=== PATIENT | male | born 1945 | race Caucasian/White ===

== ENCOUNTER → 2016-12-19 | Outpatient (CLI) | payer MEDICARE, OTHER ==
[~2016-12-19] MED LIST: FENTANYL PF 100 MCG/2ML ONE; GADOBUTROL 10 MMOL/10 ML PFS ONE; MIDAZOLAM 1 MG/ML, 5ML ONE
== END | disposition home or self-care (01) ==
LOC: RAD 09:32
PROVIDERS: ATTEND Urology
DX: D41.02 Neoplasm of uncertain behavior of left kidney (principal); N28.1 Cyst of kidney, acquired; I71.4 Abdominal aortic aneurysm, without rupture; K76.89 Other specified diseases of liver; Z85.528 Personal history of other malignant neoplasm of kidney; Z90.5 Acquired absence of kidney
CPT/HCPCS: 74183; 99156; 99157; A9585; J2250; J3010

== ENCOUNTER 2017-10-28 18:17 | Inpatient (IN) | payer MEDICARE ==
[~2017-10-28] VITALS: Ht 180.3 cm; Wt 101.6 kg
[~2017-10-28 18:17] MED LIST changes: +ETOMIDATE 20 MG/10 ML ONE; -FENTANYL PF 100 MCG/2ML ONE; -GADOBUTROL 10 MMOL/10 ML PFS ONE; +PROPOFOL 10 MG/ML, 100ML IV ONE; +SUCCINYLCHOLINE 20 MG/ML, 10ML ONE
[2017-10-28] MEDS ORDERED: ALBUTEROL/IPRATROPIUM 2.5MG/0.5MG, 3 ML ONE (18:26)
[2017-10-28] MEDS ORDERED: ALBUTEROL SULFATE 2.5 MG/3 ML NPPB ONE (18:30)
[2017-10-28] MEDS ORDERED: ALBUTEROL/IPRATROPIUM 2.5MG/0.5MG, 3 ML NPPB ONE (18:30)
[2017-10-28] MEDS ORDERED: PROPOFOL 100 ML IV PRN (18:41)
[2017-10-28] MEDS ORDERED: methylPREDNISolone SOD SUCC 125 MG/2 ML IVPush ONE (19:00)
[2017-10-28] MEDS ORDERED: SUCCINYLCHOLINE 20 MG/ML, 10ML IVPush ONE (19:00)
[2017-10-28] MEDS ORDERED: SODIUM CHLORIDE FLUSH 10ML SYR IVF PRN (19:00)
[2017-10-28] MEDS ORDERED: ETOMIDATE 20 MG/10 ML IVPush ONE (19:00)
[2017-10-28] MEDS ORDERED: AZITHROMYCIN 500 MG in SODIUM CHLORIDE 0.9% 250 ML IV ONE (19:00)
[2017-10-28] MEDS ORDERED: SODIUM CHLORIDE 0.9% 1,000ML IVBOLUS ONE ×3 (19:00→21:00)
[2017-10-28] MEDS ORDERED: CEFTRIAXONE PMX 1GM/50ML 50 ML IV ONE (19:00)
[2017-10-28 19:01] LABS: BASOPHILS # (AUTO) 0.06 x10^3/uL (0-0.1); BASOPHILS % (AUTO) 1 % (0-1); EOSINOPHILS % (AUTO) 0 % (1-7); LYMPHOCYTES # (AUTO) 0.72 x10^3/uL (1-3.4); LYMPHOCYTES % (AUTO) 6 % (22-44); MD NO; MEAN CORPUSCULAR HEMOGLOBIN 27.6 pg (27.5-34.5); MEAN CORPUSCULAR HGB CONC 31.8 g/dL (33.2-36.2); MEAN PLATELET VOLUME 9.5 fL (7.4-10.4); MONOCYTES % (AUTO) 4 % (2-9); NEUTROPHILS # (AUTO) 11.69 x10^3/uL (1.8-6.8); NEUTROPHILS % (AUTO) 90 % (42-75); PLATELET COUNT 155 x10^3/uL (130-400); RED BLOOD COUNT 6.41 x10^6/uL (4.38-5.82); RED CELL DISTRIBUTION WIDTH 16.9 % (9.4-14.8)
[2017-10-28 19:06] LABS: INTERNATIONAL NORMALIZED RATIO 2.36 (0.93-1.1); PROTHROMBIN TIME 24.1 Seconds (9.6-11.5)
[2017-10-28] MEDS ORDERED: NOREPINEPHRINE 4 MG in SODIUM CHLORIDE 0.9% 246 ML IV PRN (19:07)
[2017-10-28 19:09] LABS: ALBUMIN 2.7 g/dL (3.4-5.0); ANION GAP 13 mmol/L (5-15); CHLORIDE 102 mmol/L (98-107)
[2017-10-28 19:19] LABS: ALANINE AMINOTRANSFERASE 3093 U/L (12-78); ALKALINE PHOSPHATASE 103 U/L (45-117); BILIRUBIN,TOTAL 3.1 mg/dL (0.2-1.0); TOTAL PROTEIN 6.7 g/dL (6.4-8.2)
[2017-10-28] MEDS ORDERED: MIDAZOLAM 1 MG/ML, 2ML IVPush ONE (19:30)
[2017-10-28] MEDS ORDERED: PLEASE ENTER ALLERGIES MC SCH (19:30)
[2017-10-28] MEDS ORDERED: methylPREDNISolone SOD SUCC 125 MG/2 ML ONE (20:37)
[2017-10-28] MEDS ORDERED: ALPR-475 PO (20:51)
[2017-10-28] MEDS ORDERED: ZOLP10TA PO (20:51)
[2017-10-28] MEDS ORDERED: SODIUM CHLORIDE 0.9% 1,000 ML IV SCH (20:51)
[2017-10-28] MEDS ORDERED: MORP30TA PO (20:51)
[2017-10-28] MEDS ORDERED: ROSU40TA PO (20:51)
[2017-10-28] MEDS ORDERED: FLUT1BLS INH (20:58)
[2017-10-28] MEDS ORDERED: ACETAMINOPHEN 650 MG SUPP PR PRN (21:00)
[2017-10-28] MEDS ORDERED: ONDANSETRON 2MG/ML, 2ML IVPB PRN (21:00)
[2017-10-28] MEDS ORDERED: PHARMACY MAY ADJ FOR RENAL FX MC PRN (21:00)
[2017-10-28] MEDS ORDERED: SODIUM CHLORIDE 0.9%, 500ML IVBOLUS PRN ×2 (21:00)
[2017-10-28] MEDS ORDERED: LEVOFLOXACIN/PMX 750MG/150ML 150 ML IVPB SCH (21:00)
[2017-10-28] MEDS ORDERED: HYDROCORTISONE 100 MG INJ. IV SCH (21:00)
[2017-10-28] MEDS ORDERED: VANCOMYCIN PER PHARMACY MC PRN (21:30)
[2017-10-28] MEDS ORDERED: LIDOCAINE-MPF 1%, 2ML ENDO PRN (21:30)
[2017-10-28] MEDS: ALBUTEROL/IPRATROPIUM 2.5MG/0.5MG, 3 ML NPPB SCH (21:52)
[2017-10-28] MEDS ORDERED: PHARMACOKINETIC MONITORING MC PRN (22:00)
[2017-10-28] MEDS: PIPERACILLIN/TAZO/PMX 4.5GM 100 ML IV SCH (22:35)
[2017-10-28] MEDS: PANTOPRAZOLE 40 MG IV IV SCH (22:39)
[2017-10-28] MEDS: HEPARIN 5,000 UNITS/ML, 1ML SQ SCH (22:39)
[2017-10-28] MEDS: methylPREDNISolone SOD SUCC 125 MG/2 ML IVPush SCH (22:40)
[2017-10-28] MEDS ORDERED: VANCOMYCIN 1,800 MG in SODIUM CHLORIDE 0.9% 250 ML IV SCH (23:00)
[2017-10-28] MEDS: NOREPINEPHRINE 4 MG in SODIUM CHLORIDE 0.9% 246 ML IV PRN (23:58)
[2017-10-29] MEDS: NOREPINEPHRINE 4 MG in SODIUM CHLORIDE 0.9% 246 ML IV PRN ×3 (02:31→23:52)
[2017-10-29] MEDS: ALBUTEROL/IPRATROPIUM 2.5MG/0.5MG, 3 ML NPPB SCH ×6 (02:45→22:30)
[2017-10-29] MEDS ORDERED: SODIUM CHLORIDE 0.9%, 250ML IVBOLUS ONE (03:00)
[2017-10-29 04:00] VITALS: BP 102/60
[2017-10-29 04:48] LABS: MEAN CORPUSCULAR HEMOGLOBIN 27.3 pg (27.5-34.5); MEAN CORPUSCULAR HGB CONC 31.5 g/dL (33.2-36.2); MEAN CORPUSCULAR VOLUME 86.8 fL (81-97); MEAN PLATELET VOLUME 10.3 fL (7.4-10.4); PLATELET COUNT 182 x10^3/uL (130-400); RED BLOOD COUNT 6.53 x10^6/uL (4.38-5.82); RED CELL DISTRIBUTION WIDTH 17.4 % (9.4-14.8)
[2017-10-29 04:59] LABS: CHLORIDE 109 mmol/L (98-107)
[2017-10-29] MEDS: PIPERACILLIN/TAZO/PMX 4.5GM 100 ML IV SCH ×3 (05:10→20:00)
[2017-10-29] MEDS: PROPOFOL 100 ML IV PRN (05:12)
[2017-10-29] MEDS: methylPREDNISolone SOD SUCC 125 MG/2 ML IVPush SCH ×3 (05:12→20:43)
[2017-10-29 05:22] LABS: ALANINE AMINOTRANSFERASE 4756 U/L (12-78); ALBUMIN 2.2 g/dL (3.4-5.0); ALKALINE PHOSPHATASE 88 U/L (45-117); ANION GAP 11 mmol/L (5-15); BILIRUBIN,TOTAL 2.7 mg/dL (0.2-1.0); CALCIUM 7.1 mg/dL (8.5-10.1); CREATININE 1.85 mg/dL (0.7-1.3); TOTAL PROTEIN 5.5 g/dL (6.4-8.2)
[2017-10-29 05:39] LABS: MD YES
[2017-10-29 05:41] LABS: <PLATELET ESTIMATE> ADEQUATE; <PLT MORPHOLOGY> NORMAL PLT MORPH; BAND#(MANUAL) 2.03 x10^3/uL; BANDS%(MANUAL) 13 % (0-7); LYMPH#(MANUAL) 2.03 x10^3/uL (1-3.4); LYMPHS% (MANUAL) 13 % (22-44); MONOS#(MANUAL) 0.31 x10^3/uL (0.3-2.7); MONOS% (MANUAL) 2 % (2-9); SEG#(MANUAL) 11.23 x10^3/uL (1.8-6.8); SEGS% (MANUAL) 72 % (42-75)
[2017-10-29] MEDS ORDERED: MORP30TA3 PO (06:43)
[2017-10-29] MEDS ORDERED: EZET10TA18 PO (06:47)
[2017-10-29] MEDS ORDERED: ATEN25TA PO (06:48)
[2017-10-29] MEDS ORDERED: ASPI-515 PO (06:49)
[2017-10-29] MEDS ORDERED: ZOLP12.54 PO (07:09)
[2017-10-29] MEDS: HEPARIN 5,000 UNITS/ML, 1ML SQ SCH ×2 (08:55→20:44)
[2017-10-29 11:15] LABS: INTERNATIONAL NORMALIZED RATIO 2.03 (0.93-1.1); PROTHROMBIN TIME 20.8 Seconds (9.6-11.5)
[2017-10-29] MEDS: ASPIRIN 81 MG TABLET CHEW PO SCH (11:38)
[2017-10-29] MEDS: SODIUM CHLORIDE 0.9% 1,000 ML IV SCH (15:09)
[2017-10-29] MEDS: PANTOPRAZOLE 40 MG IV IV SCH (20:43)
[2017-10-29] MEDS ORDERED: SODIUM CHLORIDE 0.9% 1,000 ML IV SCH (20:51)
[2017-10-29] MEDS: FENTANYL PF 100 MCG/2ML IVPush PRN (22:32)
[2017-10-30] MEDS: SODIUM CHLORIDE 0.9% 1,000 ML IV SCH ×3 (01:37→22:56)
[2017-10-30] MEDS: ALBUTEROL/IPRATROPIUM 2.5MG/0.5MG, 3 ML NPPB SCH ×6 (02:02→22:26)
[2017-10-30] MEDS: PIPERACILLIN/TAZO/PMX 4.5GM 100 ML IV SCH ×4 (02:27→20:39)
[2017-10-30 05:00] VITALS: BP 99/62
[2017-10-30 05:25] LABS: INTERNATIONAL NORMALIZED RATIO 2.07 (0.93-1.1); MEAN CORPUSCULAR HEMOGLOBIN 27.7 pg (27.5-34.5); MEAN CORPUSCULAR HGB CONC 31.8 g/dL (33.2-36.2); MEAN CORPUSCULAR VOLUME 87.1 fL (81-97); MEAN PLATELET VOLUME 9.5 fL (7.4-10.4); PLATELET COUNT 132 x10^3/uL (130-400); PROTHROMBIN TIME 21.2 Seconds (9.6-11.5); RED BLOOD COUNT 5.89 x10^6/uL (4.38-5.82); RED CELL DISTRIBUTION WIDTH 17.2 % (9.4-14.8)
[2017-10-30 05:27] LABS: CHLORIDE 112 mmol/L (98-107)
[2017-10-30] MEDS: methylPREDNISolone SOD SUCC 125 MG/2 ML IVPush SCH (05:43)
[2017-10-30 05:48] LABS: MD YES
[2017-10-30 05:49] LABS: BAND#(MANUAL) 0.56 x10^3/uL; BANDS%(MANUAL) 4 % (0-7); LYMPH#(MANUAL) 1.41 x10^3/uL (1-3.4); LYMPHS% (MANUAL) 10 % (22-44); MONOS#(MANUAL) 0.28 x10^3/uL (0.3-2.7); MONOS% (MANUAL) 2 % (2-9); SEG#(MANUAL) 11.84 x10^3/uL (1.8-6.8); SEGS% (MANUAL) 84 % (42-75)
[2017-10-30 05:50] LABS: <PLATELET ESTIMATE> ADEQUATE; <PLT MORPHOLOGY> NORMAL PLT MORPH
[2017-10-30 05:54] LABS: ALANINE AMINOTRANSFERASE 3892 U/L (12-78); ALKALINE PHOSPHATASE 83 U/L (45-117); ANION GAP 9 mmol/L (5-15); BILIRUBIN,TOTAL 2.3 mg/dL (0.2-1.0); CALCIUM 7.3 mg/dL (8.5-10.1); CREATININE 1.01 mg/dL (0.7-1.3)
[2017-10-30] MEDS: ASPIRIN 81 MG TABLET CHEW PO SCH (09:08)
[2017-10-30] MEDS: HEPARIN 5,000 UNITS/ML, 1ML SQ SCH ×3 (09:08→20:39)
[2017-10-30] MEDS: PROPOFOL 100 ML IV PRN ×2 (10:13→15:57)
[2017-10-30] MEDS: FENTANYL PF 100 MCG/2ML IVPush PRN ×2 (11:10→17:39)
[2017-10-30] MEDS: PANTOPRAZOLE 40 MG IV IV SCH (20:39)
[2017-10-31] MEDS: PROPOFOL 100 ML IV PRN (01:59)
[2017-10-31] MEDS: PIPERACILLIN/TAZO/PMX 4.5GM 100 ML IV SCH ×4 (02:30→20:35)
[2017-10-31] MEDS: ALBUTEROL/IPRATROPIUM 2.5MG/0.5MG, 3 ML NPPB SCH ×6 (02:36→22:30)
[2017-10-31] MEDS: FENTANYL PF 100 MCG/2ML IVPush PRN ×2 (02:38→08:00)
[2017-10-31 05:00] VITALS: BP 113/63
[2017-10-31 05:09] LABS: BASOPHILS # (AUTO) 0.02 x10^3/uL (0-0.1); BASOPHILS % (AUTO) 0 % (0-1); EOSINOPHILS # (AUTO) 0.01 x10^3/uL (0-0.4); EOSINOPHILS % (AUTO) 0 % (1-7); LYMPHOCYTES # (AUTO) 0.78 x10^3/uL (1-3.4); LYMPHOCYTES % (AUTO) 6 % (22-44); MD NO; MEAN CORPUSCULAR HEMOGLOBIN 27.6 pg (27.5-34.5); MEAN CORPUSCULAR HGB CONC 31.6 g/dL (33.2-36.2); MEAN CORPUSCULAR VOLUME 87.1 fL (81-97); MEAN PLATELET VOLUME 9.6 fL (7.4-10.4); MONOCYTES # (AUTO) 0.41 x10^3/uL (0.2-0.8); MONOCYTES % (AUTO) 3 % (2-9); NEUTROPHILS # (AUTO) 12.54 x10^3/uL (1.8-6.8); NEUTROPHILS % (AUTO) 91 % (42-75); PLATELET COUNT 133 x10^3/uL (130-400); RED BLOOD COUNT 5.93 x10^6/uL (4.38-5.82); RED CELL DISTRIBUTION WIDTH 17.1 % (9.4-14.8)
[2017-10-31 05:18] LABS: INTERNATIONAL NORMALIZED RATIO 1.67 (0.93-1.1); PROTHROMBIN TIME 17.2 Seconds (9.6-11.5)
[2017-10-31 05:32] LABS: CHLORIDE 112 mmol/L (98-107)
[2017-10-31 05:54] LABS: ALANINE AMINOTRANSFERASE 2732 U/L (12-78); ALBUMIN 2.1 g/dL (3.4-5.0); ALKALINE PHOSPHATASE 83 U/L (45-117); ANION GAP 9 mmol/L (5-15); BILIRUBIN,TOTAL 1.9 mg/dL (0.2-1.0); CALCIUM 7.7 mg/dL (8.5-10.1); TOTAL PROTEIN 5.1 g/dL (6.4-8.2); TRIGLYCERIDES 117 mg/dL (50-200); VANCOMYCIN,RANDOM 3.1 mcg/mL
[2017-10-31] MEDS ORDERED: FUROSEMIDE 20 MG/2 ML IV ONE (09:30)
[2017-10-31] MEDS: SODIUM CHLORIDE 0.9% 1,000 ML IV SCH (09:38)
[2017-10-31] MEDS ORDERED: FINASTERIDE 5 MG TABLET PO ONE (10:30)
[2017-10-31] MEDS ORDERED: TRAZODONE 50MG TABLET PO PRN (10:30)
[2017-10-31] MEDS: ASPIRIN 81 MG TABLET CHEW PO SCH (12:44)
[2017-10-31] MEDS: GABAPENTIN 400 MG CAPSULE PO SCH ×3 (12:44→20:35)
[2017-10-31] MEDS: HEPARIN 5,000 UNITS/ML, 1ML SQ SCH ×3 (12:44→20:35)
[2017-10-31] MEDS ORDERED: ALBUTEROL/IPRATROPIUM 2.5MG/0.5MG, 3 ML NPPB PRN (13:30)
[2017-10-31] MEDS: PANTOPRAZOLE 40 MG IV IV SCH (20:35)
[2017-11-01] MEDS: PIPERACILLIN/TAZO/PMX 4.5GM 100 ML IV SCH ×2 (02:24→07:48)
[2017-11-01] MEDS: ALBUTEROL/IPRATROPIUM 2.5MG/0.5MG, 3 ML NPPB SCH ×5 (02:30→20:00)
[2017-11-01 05:00] VITALS: BP 109/63
[2017-11-01 05:01] LABS: MEAN CORPUSCULAR HEMOGLOBIN 27.9 pg (27.5-34.5); MEAN CORPUSCULAR HGB CONC 32.2 g/dL (33.2-36.2); MEAN CORPUSCULAR VOLUME 86.5 fL (81-97); PLATELET COUNT 121 x10^3/uL (130-400); RED BLOOD COUNT 6.01 x10^6/uL (4.38-5.82); RED CELL DISTRIBUTION WIDTH 17.5 % (9.4-14.8)
[2017-11-01 05:04] LABS: ALBUMIN 2.3 g/dL (3.4-5.0); ANION GAP 5 mmol/L (5-15); CALCIUM 7.8 mg/dL (8.5-10.1); CHLORIDE 109 mmol/L (98-107)
[2017-11-01 05:14] LABS: ALKALINE PHOSPHATASE 77 U/L (45-117); BILIRUBIN,TOTAL 2.9 mg/dL (0.2-1.0); CREATININE 0.76 mg/dL (0.7-1.3); TOTAL PROTEIN 5.5 g/dL (6.4-8.2)
[2017-11-01 05:17] LABS: ALANINE AMINOTRANSFERASE 2095 U/L (12-78)
[2017-11-01 05:44] LABS: BASOPHILS % (AUTO) 1 % (0-1); EOSINOPHILS # (AUTO) 0.01 x10^3/uL (0-0.4); EOSINOPHILS % (AUTO) 0 % (1-7); LYMPHOCYTES # (AUTO) 1.16 x10^3/uL (1-3.4); LYMPHOCYTES % (AUTO) 8 % (22-44); MD SCAN; MONOCYTES # (AUTO) 0.25 x10^3/uL (0.2-0.8); MONOCYTES % (AUTO) 2 % (2-9); NEUTROPHILS # (AUTO) 14.05 x10^3/uL (1.8-6.8); NEUTROPHILS % (AUTO) 90 % (42-75)
[2017-11-01] MEDS ORDERED: ALBUTEROL/IPRATROPIUM 2.5MG/0.5MG, 3 ML IPPB SCH (07:00)
[2017-11-01] MEDS ORDERED: MAGNESIUM SULFATE PMX 2GM/50ML 50 ML IV ONE (07:00)
[2017-11-01] MEDS: HEPARIN 5,000 UNITS/ML, 1ML SQ SCH ×3 (08:52→20:08)
[2017-11-01] MEDS: GABAPENTIN 400 MG CAPSULE PO SCH ×3 (08:52→20:08)
[2017-11-01] MEDS: ASPIRIN 81 MG TABLET CHEW PO SCH (08:52)
[2017-11-01] MEDS: TAMSULOSIN 0.4 MG CAP.ER.24H PO SCH (08:52)
[2017-11-01 11:18] VITALS: BP 105/72
[2017-11-01] MEDS: FINASTERIDE 5 MG TABLET PO SCH (13:51)
[2017-11-01] MEDS: AMPICILLIN/SULBACTAM 3 GM in SODIUM CHLORIDE 0.9% 100 ML IV SCH ×2 (13:52→20:08)
[2017-11-01 14:06] VITALS: BP 116/73
[2017-11-01 18:20] VITALS: BP 114/74
[2017-11-01] MEDS: FAMOTIDINE 20 MG TABLET PO SCH (20:08)
[2017-11-02] MEDS: OXYcodone IR 5MG TABLET PO PRN ×2 (00:29→12:16)
[2017-11-02] MEDS: AMPICILLIN/SULBACTAM 3 GM in SODIUM CHLORIDE 0.9% 100 ML IV SCH ×4 (01:42→20:58)
[2017-11-02 02:22] VITALS: BP 100/52
[2017-11-02 05:31] LABS: MEAN CORPUSCULAR HEMOGLOBIN 27.8 pg (27.5-34.5); MEAN CORPUSCULAR HGB CONC 31.9 g/dL (33.2-36.2); MEAN CORPUSCULAR VOLUME 86.9 fL (81-97); MEAN PLATELET VOLUME 8.8 fL (7.4-10.4); PLATELET COUNT 94 x10^3/uL (130-400); RED BLOOD COUNT 5.64 x10^6/uL (4.38-5.82); RED CELL DISTRIBUTION WIDTH 17.5 % (9.4-14.8)
[2017-11-02 05:33] LABS: ALBUMIN 2.2 g/dL (3.4-5.0); ANION GAP 5 mmol/L (5-15); CALCIUM 7.6 mg/dL (8.5-10.1); CHLORIDE 110 mmol/L (98-107); CREATININE 0.63 mg/dL (0.7-1.3)
[2017-11-02 05:43] LABS: ALANINE AMINOTRANSFERASE 1333 U/L (12-78); ALKALINE PHOSPHATASE 69 U/L (45-117); BILIRUBIN,TOTAL 2.5 mg/dL (0.2-1.0)
[2017-11-02 06:00] LABS: BASOPHILS # (AUTO) 0.14 x10^3/uL (0-0.1); BASOPHILS % (AUTO) 1 % (0-1); EOSINOPHILS # (AUTO) 0.11 x10^3/uL (0-0.4); EOSINOPHILS % (AUTO) 1 % (1-7); LYMPHOCYTES # (AUTO) 1.13 x10^3/uL (1-3.4); LYMPHOCYTES % (AUTO) 9 % (22-44); MD SCAN; MONOCYTES # (AUTO) 0.38 x10^3/uL (0.2-0.8); MONOCYTES % (AUTO) 3 % (2-9); NEUTROPHILS # (AUTO) 10.68 x10^3/uL (1.8-6.8); NEUTROPHILS % (AUTO) 86 % (42-75)
[2017-11-02] MEDS: ALBUTEROL/IPRATROPIUM 2.5MG/0.5MG, 3 ML NPPB SCH ×4 (06:55→18:21)
[2017-11-02] MEDS ORDERED: MAGNESIUM SULFATE PMX 4GM/100M 100 ML IV ONE ×2 (07:00→10:00)
[2017-11-02] MEDS ORDERED: SODIUM PHOSPHATE 10 MMOL in SODIUM CHLORIDE 0.9% 500 ML IV ONE (07:00)
[2017-11-02 07:20] VITALS: BP 105/74
[2017-11-02 08:16] LABS: HIT RESULT NEGATIVE (NEGATIVE)
[2017-11-02] MEDS: ASPIRIN 81 MG TABLET CHEW PO SCH (08:31)
[2017-11-02] MEDS: TAMSULOSIN 0.4 MG CAP.ER.24H PO SCH (08:31)
[2017-11-02] MEDS: FAMOTIDINE 20 MG TABLET PO SCH ×2 (08:31→20:58)
[2017-11-02] MEDS: GABAPENTIN 400 MG CAPSULE PO SCH ×3 (08:31→20:58)
[2017-11-02] MEDS: FINASTERIDE 5 MG TABLET PO SCH (08:55)
[2017-11-02] MEDS: HEPARIN 5,000 UNITS/ML, 1ML SQ SCH ×3 (08:55→20:58)
[2017-11-02 13:30] VITALS: BP 117/73
[2017-11-02 18:54] VITALS: BP 99/62
[2017-11-03] MEDS: AMPICILLIN/SULBACTAM 3 GM in SODIUM CHLORIDE 0.9% 100 ML IV SCH ×4 (02:43→20:20)
[2017-11-03 05:02] VITALS: BP 123/72
[2017-11-03 07:03] VITALS: BP 146/82
[2017-11-03] MEDS: ALBUTEROL/IPRATROPIUM 2.5MG/0.5MG, 3 ML NPPB SCH ×4 (07:18→19:45)
[2017-11-03] MEDS: FINASTERIDE 5 MG TABLET PO SCH (07:52)
[2017-11-03] MEDS: ASPIRIN 81 MG TABLET CHEW PO SCH (07:52)
[2017-11-03] MEDS: GABAPENTIN 400 MG CAPSULE PO SCH ×3 (07:52→20:19)
[2017-11-03] MEDS: FAMOTIDINE 20 MG TABLET PO SCH ×2 (07:53→20:19)
[2017-11-03] MEDS: TAMSULOSIN 0.4 MG CAP.ER.24H PO SCH (07:53)
[2017-11-03 08:11] LABS: MEAN CORPUSCULAR HEMOGLOBIN 27.5 pg (27.5-34.5); MEAN CORPUSCULAR HGB CONC 31.8 g/dL (33.2-36.2); MEAN CORPUSCULAR VOLUME 86.4 fL (81-97); RED CELL DISTRIBUTION WIDTH 18.1 % (9.4-14.8)
[2017-11-03 08:22] LABS: ALBUMIN 2.4 g/dL (3.4-5.0); ANION GAP 5 mmol/L (5-15); CALCIUM 7.9 mg/dL (8.5-10.1); CHLORIDE 105 mmol/L (98-107)
[2017-11-03 08:32] LABS: ALANINE AMINOTRANSFERASE 1068 U/L (12-78); ALKALINE PHOSPHATASE 70 U/L (45-117); BILIRUBIN,TOTAL 2.3 mg/dL (0.2-1.0); CREATININE 0.54 mg/dL (0.7-1.3); TOTAL PROTEIN 5.6 g/dL (6.4-8.2)
[2017-11-03 08:36] LABS: BASOPHILS # (AUTO) 0.08 x10^3/uL (0-0.1); BASOPHILS % (AUTO) 1 % (0-1); EOSINOPHILS # (AUTO) 0.23 x10^3/uL (0-0.4); EOSINOPHILS % (AUTO) 2 % (1-7); LYMPHOCYTES # (AUTO) 1.38 x10^3/uL (1-3.4); LYMPHOCYTES % (AUTO) 13 % (22-44); MD SCAN; MEAN PLATELET VOLUME 9.2 fL (7.4-10.4); MONOCYTES # (AUTO) 0.11 x10^3/uL (0.2-0.8); MONOCYTES % (AUTO) 1 % (2-9); NEUTROPHILS # (AUTO) 9.29 x10^3/uL (1.8-6.8); NEUTROPHILS % (AUTO) 84 % (42-75); PLATELET COUNT 84 x10^3/uL (130-400)
[2017-11-03] MEDS: HEPARIN 5,000 UNITS/ML, 1ML SQ SCH (09:56)
[2017-11-03] MEDS ORDERED: ENOXAPARIN 40 MG/0.4 ML SQ SCH (12:30)
[2017-11-03 13:58] VITALS: BP 112/77
[2017-11-03] MEDS: ENOXAPARIN 40 MG/0.4 ML SQ SCH (14:29)
[2017-11-03 20:18] VITALS: BP 109/65
[2017-11-03] MEDS: OXYcodone IR 5MG TABLET PO PRN (20:19)
[2017-11-04 01:49] VITALS: BP 151/85
[2017-11-04] MEDS: AMPICILLIN/SULBACTAM 3 GM in SODIUM CHLORIDE 0.9% 100 ML IV SCH ×4 (01:50→20:19)
[2017-11-04 05:08] LABS: MEAN CORPUSCULAR HEMOGLOBIN 27.4 pg (27.5-34.5); MEAN CORPUSCULAR HGB CONC 31.8 g/dL (33.2-36.2); RED BLOOD COUNT 5.48 x10^6/uL (4.38-5.82); RED CELL DISTRIBUTION WIDTH 18.3 % (9.4-14.8)
[2017-11-04 05:14] LABS: ALBUMIN 2.1 g/dL (3.4-5.0); ANION GAP 5 mmol/L (5-15); CHLORIDE 104 mmol/L (98-107)
[2017-11-04 05:20] LABS: ALANINE AMINOTRANSFERASE 721 U/L (12-78); ALKALINE PHOSPHATASE 57 U/L (45-117); BILIRUBIN,TOTAL 1.7 mg/dL (0.2-1.0); CREATININE 0.61 mg/dL (0.7-1.3); TOTAL PROTEIN 4.8 g/dL (6.4-8.2)
[2017-11-04 06:03] LABS: BASOPHILS # (AUTO) 0.05 x10^3/uL (0-0.1); BASOPHILS % (AUTO) 1 % (0-1); EOSINOPHILS # (AUTO) 0.22 x10^3/uL (0-0.4); EOSINOPHILS % (AUTO) 2 % (1-7); LYMPHOCYTES # (AUTO) 1.22 x10^3/uL (1-3.4); LYMPHOCYTES % (AUTO) 12 % (22-44); MD SCAN; MEAN PLATELET VOLUME 9.3 fL (7.4-10.4); MONOCYTES # (AUTO) 0.33 x10^3/uL (0.2-0.8); MONOCYTES % (AUTO) 3 % (2-9); NEUTROPHILS # (AUTO) 8.59 x10^3/uL (1.8-6.8); NEUTROPHILS % (AUTO) 83 % (42-75); PLATELET COUNT 90 x10^3/uL (130-400)
[2017-11-04 06:54] VITALS: BP 144/80
[2017-11-04] MEDS: ALBUTEROL/IPRATROPIUM 2.5MG/0.5MG, 3 ML NPPB SCH ×4 (07:05→19:45)
[2017-11-04] MEDS ORDERED: MAGNESIUM SULFATE 3 GM in SODIUM CHLORIDE 0.9% 100 ML IV ONE (08:00)
[2017-11-04] MEDS ORDERED: STERILE WATER IV ONE (08:30)
[2017-11-04] MEDS ORDERED: MAGNESIUM SULFATE IV ONE (08:30)
[2017-11-04] MEDS: TAMSULOSIN 0.4 MG CAP.ER.24H PO SCH (08:51)
[2017-11-04] MEDS: FAMOTIDINE 20 MG TABLET PO SCH ×2 (08:51→20:19)
[2017-11-04] MEDS: GABAPENTIN 400 MG CAPSULE PO SCH ×3 (08:51→20:20)
[2017-11-04] MEDS: FINASTERIDE 5 MG TABLET PO SCH (08:52)
[2017-11-04] MEDS: NICOTINE 21 MG/24 HR PATCH.TD24 TD SCH (09:09)
[2017-11-04] MEDS: ASPIRIN 81 MG TABLET CHEW PO SCH (11:43)
[2017-11-04 13:28] VITALS: BP 149/84
[2017-11-04] MEDS: ENOXAPARIN 40 MG/0.4 ML SQ SCH (14:31)
[2017-11-04 18:33] VITALS: BP 130/66
[2017-11-05 00:16] VITALS: BP 136/77
[2017-11-05] MEDS: AMPICILLIN/SULBACTAM 3 GM in SODIUM CHLORIDE 0.9% 100 ML IV SCH (01:56)
[2017-11-05 05:08] LABS: BASOPHILS # (AUTO) 0.01 x10^3/uL (0-0.1); BASOPHILS % (AUTO) 0 % (0-1); EOSINOPHILS # (AUTO) 0.16 x10^3/uL (0-0.4); EOSINOPHILS % (AUTO) 2 % (1-7); LYMPHOCYTES # (AUTO) 1.08 x10^3/uL (1-3.4); LYMPHOCYTES % (AUTO) 10 % (22-44); MD NO; MEAN CORPUSCULAR HEMOGLOBIN 27.5 pg (27.5-34.5); MEAN CORPUSCULAR HGB CONC 31.8 g/dL (33.2-36.2); MEAN CORPUSCULAR VOLUME 86.4 fL (81-97); MEAN PLATELET VOLUME 9.8 fL (7.4-10.4); MONOCYTES # (AUTO) 0.54 x10^3/uL (0.2-0.8); MONOCYTES % (AUTO) 5 % (2-9); NEUTROPHILS # (AUTO) 9.09 x10^3/uL (1.8-6.8); NEUTROPHILS % (AUTO) 84 % (42-75); PLATELET COUNT 110 x10^3/uL (130-400); RED BLOOD COUNT 5.46 x10^6/uL (4.38-5.82); RED CELL DISTRIBUTION WIDTH 18.5 % (9.4-14.8)
[2017-11-05 05:09] LABS: ANION GAP 4 mmol/L (5-15); CALCIUM 7.8 mg/dL (8.5-10.1); CHLORIDE 107 mmol/L (98-107); CREATININE 0.81 mg/dL (0.7-1.3)
[2017-11-05] MEDS ORDERED: MAGNESIUM SULFATE PMX 4GM/100M 100 ML IV ONE (07:00)
[2017-11-05] MEDS: ALBUTEROL/IPRATROPIUM 2.5MG/0.5MG, 3 ML NPPB SCH ×3 (07:00→15:00)
[2017-11-05] MEDS ORDERED: METOPROLOL TARTRATE 25 MG TABLET PO SCH ×2 (07:00)
[2017-11-05 07:16] VITALS: BP 125/80
[2017-11-05] MEDS ORDERED: REGADENOSON 0.4 MG/5 ML SYRINGE ONE (07:59)
[2017-11-05] MEDS ORDERED: AMOXICILLIN/CLAV 875-125MG TABLET PO SCH (09:00)
[2017-11-05] MEDS: NICOTINE 21 MG/24 HR PATCH.TD24 TD SCH (09:30)
[2017-11-05] MEDS: GABAPENTIN 400 MG CAPSULE PO SCH ×2 (09:30→16:00)
[2017-11-05] MEDS: FAMOTIDINE 20 MG TABLET PO SCH (09:30)
[2017-11-05] MEDS: FINASTERIDE 5 MG TABLET PO SCH (09:30)
[2017-11-05] MEDS: TAMSULOSIN 0.4 MG CAP.ER.24H PO SCH (09:31)
[2017-11-05] MEDS: ASPIRIN 81 MG TABLET CHEW PO SCH (09:31)
[2017-11-05] MEDS: ENOXAPARIN 40 MG/0.4 ML SQ SCH (13:21)
[2017-11-05 15:01] VITALS: BP 132/78
[2017-11-05] MEDS ORDERED: TAMS-11 PO (15:48)
[2017-11-05] MEDS ORDERED: FINA5TAB4 PO (15:48)
[2017-11-05] MEDS ORDERED: GABA-827 PO (15:48)
[2017-11-05] MEDS ORDERED: ATOR40TA78 PO (15:48)
[2017-11-05] MEDS ORDERED: METO25TA35 PO (15:48)
[2017-11-05] MEDS ORDERED: AMOX1TAB12 PO (15:48)
[2017-11-05] MEDS ORDERED: ATORVASTATIN 40 MG TABLET PO SCH (21:00)
== END 2017-11-05 17:38 | disposition home or self-care (01) | DRG 871 ==
LOC: SUATTDRO 20:33 → ED 21:07 → EDIP 21:16 → CCU 21:38 → 5SO 11-01 11:03
PROVIDERS: ADMIT Hospitalist; ATTEND Hospitalist
PROC: 02HV33Z Insertion of Infusion Device into Superior Vena Cava, Percutaneous Approach (ICD-10-PCS; principal; 2017-10-28)
PROC: 5A1945Z Respiratory Ventilation, 24-96 Consecutive Hours (ICD-10-PCS; 2017-10-28)
PROC: B548ZZA Ultrasonography of Superior Vena Cava, Guidance (ICD-10-PCS; 2017-10-28)
PROC: 0BH17EZ Insertion of Endotracheal Airway into Trachea, Via Natural or Artificial Opening (ICD-10-PCS; 2017-10-28)
DX: A41.9 Sepsis, unspecified organism (principal); J96.21 Acute and chronic respiratory failure with hypoxia; I21.A1 Myocardial infarction type 2; K72.00 Acute and subacute hepatic failure without coma; E43 Unspecified severe protein-calorie malnutrition; R65.21 Severe sepsis with septic shock; N17.0 Acute kidney failure with tubular necrosis; J18.9 Pneumonia, unspecified organism; D68.9 Coagulation defect, unspecified; E87.2 Acidosis; Z99.11 Dependence on respirator [ventilator] status; J96.22 Acute and chronic respiratory failure with hypercapnia; I47.2 Ventricular tachycardia; S36.119A Unspecified injury of liver, initial encounter; J44.0 Chronic obstructive pulmonary disease with (acute) lower respiratory infection; J44.1 Chronic obstructive pulmonary disease with (acute) exacerbation; J98.11 Atelectasis; M54.9 Dorsalgia, unspecified; X58.XXXA Exposure to other specified factors, initial encounter; D69.6 Thrombocytopenia, unspecified; E66.9 Obesity, unspecified; E78.5 Hyperlipidemia, unspecified; F17.210 Nicotine dependence, cigarettes, uncomplicated; G89.29 Other chronic pain; I07.1 Rheumatic tricuspid insufficiency; I12.9 Hypertensive chronic kidney disease with stage 1 through stage 4 chronic kidney disease, or unspecified chronic kidney disease; I25.10 Atherosclerotic heart disease of native coronary artery without angina pectoris; I27.20 Pulmonary hypertension, unspecified; I71.4 Abdominal aortic aneurysm, without rupture; K75.89 Other specified inflammatory liver diseases; K76.0 Fatty (change of) liver, not elsewhere classified; N18.9 Chronic kidney disease, unspecified; N40.1 Benign prostatic hyperplasia with lower urinary tract symptoms; R33.8 Other retention of urine; Z79.891 Long term (current) use of opiate analgesic; Z85.528 Personal history of other malignant neoplasm of kidney; Z90.5 Acquired absence of kidney; Z95.1 Presence of aortocoronary bypass graft; Z99.81 Dependence on supplemental oxygen; Y93.89 Activity, other specified; Y92.89 Other specified places as the place of occurrence of the external cause; Z68.31 Body mass index [BMI] 31.0-31.9, adult
CPT/HCPCS: 31500; 36415; 36556; 36600; 51702; 71045; 76700; 76770; 78452; 80048; 80053; 80202; 82533; 82803; 83605; 83735; 83880; 84100; 84145; 84478; 84484; 85025; 85610; 85730; 86022; 87040; 87070; 87077; 87081; 87184; 87205; 93005; 93017; 93306; 94002; 94003; 94150; 94640; 96361; 96374; 99291; J0295; J0456; J1644; J1650; J2250; J2405; J2543; J2704; J2785; J3010; J3370; J3475; J7613; J7620; A9502; C9113; C9898; J0330; J1940; J2930; J7030; J7040; J7050

== ENCOUNTER → 2017-12-29 | Outpatient (CLI) | payer MEDICARE ==
[~2017-12-29] MED LIST changes: +ALPR-475 PO; +AMOX1TAB12 PO; +ASPI-515 PO; +ATEN25TA PO; +ATOR40TA78 PO; -ETOMIDATE 20 MG/10 ML ONE; +EZET10TA18 PO; +FINA5TAB4 PO; +FLUT1BLS INH; +GABA-827 PO; +METO25TA35 PO; -MIDAZOLAM 1 MG/ML, 5ML ONE; +MORP30TA PO; +MORP30TA3 PO; -PROPOFOL 10 MG/ML, 100ML IV ONE; +ROSU40TA PO; -SUCCINYLCHOLINE 20 MG/ML, 10ML ONE; +TAMS-11 PO; +ZOLP10TA PO; +ZOLP12.54 PO
== END | disposition home or self-care (01) ==
LOC: CFH 12:57
PROVIDERS: ATTEND Surgery
DX: I71.4 Abdominal aortic aneurysm, without rupture (principal); N20.0 Calculus of kidney; I25.10 Atherosclerotic heart disease of native coronary artery without angina pectoris; J44.9 Chronic obstructive pulmonary disease, unspecified; I12.9 Hypertensive chronic kidney disease with stage 1 through stage 4 chronic kidney disease, or unspecified chronic kidney disease; N18.9 Chronic kidney disease, unspecified; N40.0 Benign prostatic hyperplasia without lower urinary tract symptoms; Z85.528 Personal history of other malignant neoplasm of kidney
CPT/HCPCS: 74176

== ENCOUNTER → 2018-03-19 | Outpatient (CLI) | payer MEDICARE ==
[~2018-03-19] MED LIST changes: +FENTANYL PF 100 MCG/2ML ONE; +FLUMAZENIL 0.1 MG/1 ML, 5ML ONE; +MIDAZOLAM 1 MG/ML, 5ML ONE; +NALOXONE 1 MG/ML, 2ML ONE
== END | disposition home or self-care (01) ==
LOC: RAD 14:33
PROVIDERS: ATTEND Anesthesiology
DX: S46.812A Strain of other muscles, fascia and tendons at shoulder and upper arm level, left arm, initial encounter (principal); S46.811A Strain of other muscles, fascia and tendons at shoulder and upper arm level, right arm, initial encounter; M19.012 Primary osteoarthritis, left shoulder; M19.011 Primary osteoarthritis, right shoulder; X58.XXXA Exposure to other specified factors, initial encounter; Y93.89 Activity, other specified; Y92.89 Other specified places as the place of occurrence of the external cause; Y99.8 Other external cause status
CPT/HCPCS: 73221; 99156; 99157; J2250; J3010; J2310

== ENCOUNTER → 2018-03-25 | Outpatient (CLI) | payer MEDICARE ==
[~2018-03-25] MED LIST changes: -FENTANYL PF 100 MCG/2ML ONE; -FLUMAZENIL 0.1 MG/1 ML, 5ML ONE; -MIDAZOLAM 1 MG/ML, 5ML ONE; -NALOXONE 1 MG/ML, 2ML ONE
== END | disposition home or self-care (01) ==
LOC: CFH 09:54
PROVIDERS: ATTEND Internal Medicine Critical Care Medicine
DX: Z12.2 Encounter for screening for malignant neoplasm of respiratory organs (principal); F17.210 Nicotine dependence, cigarettes, uncomplicated; R91.1 Solitary pulmonary nodule; J98.2 Interstitial emphysema
CPT/HCPCS: G0297

== ENCOUNTER 2018-05-12 06:19 | Day surgery (SDC) | payer MEDICARE ==
[~2018-05-12] VITALS: Ht 182.9 cm; Wt 90.0 kg
[2018-05-12 07:06] VITALS: BP 94/61
[2018-05-12] MEDS ORDERED: LIDOCAINE-MPF 1%, 5ML ONE (07:56)
[2018-05-12] MEDS ORDERED: FENTANYL PF 100 MCG/2ML ONE ×2 (08:01→08:02)
[2018-05-12] MEDS ORDERED: MIDAZOLAM 1 MG/ML, 5ML ONE (08:02)
[2018-05-12] MEDS ORDERED: NALOXONE 1 MG/ML, 2ML ONE (08:02)
[2018-05-12] MEDS ORDERED: FLUMAZENIL 0.1 MG/1 ML, 5ML ONE (08:02)
== END 2018-05-12 12:15 | disposition home or self-care (01) ==
LOC: OUT 06:19
PROVIDERS: ATTEND Internal Medicine Critical Care Medicine
DX: J84.10 Pulmonary fibrosis, unspecified (principal); I25.2 Old myocardial infarction; E44.0 Moderate protein-calorie malnutrition; G89.4 Chronic pain syndrome; J44.9 Chronic obstructive pulmonary disease, unspecified; F17.200 Nicotine dependence, unspecified, uncomplicated; Z87.39 Personal history of other diseases of the musculoskeletal system and connective tissue; Z95.1 Presence of aortocoronary bypass graft; Z79.82 Long term (current) use of aspirin; Z79.899 Other long term (current) drug therapy; F10.21 Alcohol dependence, in remission; Z98.890 Other specified postprocedural states; Z99.81 Dependence on supplemental oxygen
CPT/HCPCS: 32405; 71045; 77012; 88305; 99156; 99157; J2250; J3010; J2310

== ENCOUNTER → 2018-07-01 | Outpatient (CLI) | payer MEDICARE | END | disposition home or self-care (01) | LOC: CFH 14:26 | PROVIDERS: ATTEND Nurse Practitioner Family | DX: R91.1 Solitary pulmonary nodule (principal) | CPT/HCPCS: 71250 ==

== ENCOUNTER → 2018-08-05 | Outpatient (CLI) | payer MEDICARE | END | disposition home or self-care (01) | LOC: CVU 06:41 | PROVIDERS: ATTEND Surgery | DX: I71.4 Abdominal aortic aneurysm, without rupture (principal); I74.5 Embolism and thrombosis of iliac artery; I25.810 Atherosclerosis of coronary artery bypass graft(s) without angina pectoris; I10 Essential (primary) hypertension; I25.2 Old myocardial infarction; E78.5 Hyperlipidemia, unspecified; J44.9 Chronic obstructive pulmonary disease, unspecified; Z99.81 Dependence on supplemental oxygen; Z95.1 Presence of aortocoronary bypass graft; Z72.0 Tobacco use | CPT/HCPCS: 93978 ==

== ENCOUNTER → 2018-10-14 | Outpatient (CLI) | payer MEDICARE | END | disposition home or self-care (01) | LOC: CFH 13:39 | PROVIDERS: ATTEND Nurse Practitioner Family | DX: J43.2 Centrilobular emphysema (principal); J98.4 Other disorders of lung | CPT/HCPCS: 71250 ==

== ENCOUNTER 2019-04-16 08:40 | Outpatient (CLI) | payer MEDICARE ==
[~2019-04-16 08:40] MED LIST changes: -ALPR-475 PO; +ALPR0.5T7 PO; -EZET10TA18 PO; +EZET10TA70 PO; +MORP-30 PO; -MORP30TA3 PO
== END 2019-04-16 23:59 | disposition home or self-care (01) ==
LOC: CVU 08:40
PROVIDERS: ATTEND Internal Medicine Cardiovascular Disease
DX: I08.8 Other rheumatic multiple valve diseases (principal); R06.02 Shortness of breath; J44.9 Chronic obstructive pulmonary disease, unspecified; F11.10 Opioid abuse, uncomplicated; F17.200 Nicotine dependence, unspecified, uncomplicated
CPT/HCPCS: 93306

== ENCOUNTER → 2019-07-02 | Outpatient (CLI) | payer MEDICARE | END | disposition home or self-care (01) | LOC: CVU 08:32 | PROVIDERS: ATTEND Internal Medicine Cardiovascular Disease | DX: I65.23 Occlusion and stenosis of bilateral carotid arteries (principal); I25.810 Atherosclerosis of coronary artery bypass graft(s) without angina pectoris; E78.5 Hyperlipidemia, unspecified | CPT/HCPCS: 93880 ==

== ENCOUNTER → 2020-04-24 | Outpatient (CLI) | payer MEDICARE ==
[~2020-04-24] MED LIST changes: +CEFD300C37 PO; +DOXY100C2 PO; +MORPHINE IR 30 MG; -ZOLP12.54 PO; +ZOLP12.56 PO
== END | disposition home or self-care (01) ==
LOC: CFH 15:43
PROVIDERS: ATTEND Nurse Practitioner
DX: J43.9 Emphysema, unspecified (principal); J47.9 Bronchiectasis, uncomplicated; R59.0 Localized enlarged lymph nodes; I25.10 Atherosclerotic heart disease of native coronary artery without angina pectoris
CPT/HCPCS: 71250